=== PATIENT | male | born 1990 | race Two or more races ===

== ENCOUNTER 2017-04-20 00:33 | Emergency (ER) | payer SELFPAY ==
[~2017-04-20] VITALS: Ht 162.6 cm; Wt 72.6 kg
[2017-04-20 00:42] VITALS: BP 121/63
[2017-04-20] MEDS ORDERED: CEPH-264 PO (02:00)
--- NOTE | 2017-04-20 02:00 | PHYS DOC ---
Adult General Chief Complaint Chief Complaint: LACERATION/AVULSION HPI HPI 26-year-old male status post lack dorsum right thumb approximately 9-10 hours ago. Patient was at work when a sharp piece of metal twisted around and cut the back of his thumb. He has normal use and range of motion of the thumb. Normal distal sensation. He reports a small amount of bleeding. His tetanus is not up- to-date. He is right-handed. No blood or bleeding problems and no anticoagulants . Patient denies the possibility of a foreign body in the wound. Review of Systems Review of Systems Constitutional: Denies fever or chills [] Eyes: Denies change in visual acuity, redness, or eye pain [] HENT: Denies nasal congestion or sore throat [] Respiratory: Denies cough or shortness of breath [] Cardiovascular: No additional information not addressed in HPI [] GI: Denies abdominal pain, nausea, vomiting, bloody stools or diarrhea [] : Denies dysuria or hematuria [] Musculoskeletal: Denies back pain or joint pain [] Integument: Denies rash or skin lesions [] Neurologic: Denies headache, focal weakness or sensory changes [] Endocrine: Denies polyuria or polydipsia [] All other systems were reviewed and found to be within normal limits, except as documented in this note. Current Medications Current Medications Current Medications Medications (Trade) Dose Ordered Sig/Zan Start Time Stop Time Status Last Admin Dose Admin Cephalexin HCl (Keflex) 500 mg 1X ONCE 04/20/17 02:30 04/20/17 02:40 DC 04/20/17 02:59 500 MG Diphtheria/ Tetanus/Acell Pertussis (Boostrix) 0.5 ml ONCE ONCE 04/20/17 02:45 04/20/17 02:46 DC 04/20/17 03:00 0.5 ML Allergies Allergies Allergies Coded Allergies Type Severity Reaction Last Updated Verified No Known Drug Allergies 04/20/17 No Physical Exam Physical Exam Well-appearing 26-year-old male no acute distress 1.5 cm laceration dorsum right thumb over the MCP without joint or extensor tendon involvement. No gross contamination. No erythema warmth fluctuance or crepitus. No hematoma. Patient has normal full range of motion and use of the thumb and hand. Constitutional: Well developed, well nourished, no acute distress, non-toxic appearance. [] HENT: Normocephalic, atraumatic, bilateral external ears normal, oropharynx moist, no oral exudates, nose normal. [] Eyes: PERRLA, EOMI, conjunctiva normal, no discharge. [] Neck: Normal range of motion, no tenderness, supple, no stridor. [] Cardiovascular:Heart rate regular rhythm, no murmur [] Lungs & Thorax: Bilateral breath sounds clear to auscultation [] Abdomen: Bowel sounds normal, soft, no tenderness, no masses, no pulsatile masses. [] Skin: Warm, dry, no erythema, no rash. [] Back: No tenderness, no CVA tenderness. [] Extremities: No tenderness, no cyanosis, no clubbing, ROM intact, no edema. [] Neurologic: Alert and oriented X 3, normal motor function, normal sensory function, no focal deficits noted. [] Psychologic: Affect normal, judgement normal, mood normal. [] Current Patient Data Vital Signs Vital Signs Date Time Temp Pulse Resp B/P (MAP) Pulse Ox O2 Delivery O2 Flow Rate FiO2 04/20/17 00:42 97.0 62 18 99 Room Air 97.0 EKG EKG [] Radiology/Procedures Radiology/Procedures [] Course & Med Decision Making Course & Med Decision Making Pertinent Labs and Imaging studies reviewed. (See chart for details) Patient with simple laceration dorsum left thumb. Normal function. No evidence of wound complicated by tendon or nerve involvement. Normal use and range of motion. Wound has been open for 9-10 hours so primary suture closure not clinically indicated. Wound irrigated extensively in ED with iodine tap water irrigation and Steri-Strip closure performed by nurse and ER M.D. No anesthesia was used and patient tolerated the process well. Hemostatic prior to discharge. Dressing in place. Tetanus updated. No further workup or treatment indicated. Patient agrees with outpatient follow-up and strict return precautions given [] Dragon Disclaimer Dragon Disclaimer This electronic medical record was generated, in whole or in part, using a voice recognition dictation system. Departure Departure Impression: Primary Impression: Laceration Disposition: HOME, SELF-CARE Condition: GOOD Referrals: NO PCP (PCP) Patient Instructions: Laceration Care, Adult Additional Instructions: Suffered a laceration of your right hand. You have no evidence of tendon injury. Be aware that there is always a possibility of some small foreign body in a wound however you've felt that the metal was clean and that foreign body is less likely in your case. Your tetanus has been updated. A Steri-Strip has been applied to your wound. Finish Keflex as prescribed to prevent infection. Follow-up with your doctor in 2 days for a wound check and return for signs of infection. If it's sore take ibuprofen every 6 hours and Tylenol every 4 hours as needed Scripts Cephalexin (KEFLEX) 500 Mg Capsule 1 CAP PO QID, #20 CAP Prov: RAPHAEL MUÑOZ MD 04/20/17 RAPHAEL MUÑOZ MD Apr 20, 2017 02:00
[2017-04-20] MEDS ORDERED: CEPHALEXIN 250 MG CAPSULE. PO ONE (02:30)
[2017-04-20] MEDS ORDERED: DIPHTH,PERTUSS(ACELL),TET TOX 0.5 ML DISP.SYRIN. VAX IM ONE (02:45)
== END 2017-04-20 03:15 | disposition home or self-care (01) ==
LOC: ER 00:33
DX: S61.011A Laceration without foreign body of right thumb without damage to nail, initial encounter (principal); Y28.8XXA Contact with other sharp object, undetermined intent, initial encounter; Y93.89 Activity, other specified; Y99.8 Other external cause status; Y92.89 Other specified places as the place of occurrence of the external cause
CPT/HCPCS: 90471; 90715; 99283-25

== ENCOUNTER 2017-07-19 12:40 | Emergency (ER) | payer SELFPAY ==
[2017-07-19 14:23] LABS: AGAP ISTAT 17 mmol/L (6-14); BUN ISTAT 19 mg/dL (8-26); CHLORIDE ISTAT 105 mmol/L (98-110); GLUCOSE ISTAT 95 mg/dL (70-99); HEMATOCRIT ISTAT 39 % (37-52); HEMOGLOBIN ISTAT 13.3 g/dL (14-18); POTASSIUM ISTAT 4.4 mmol/L (3.5-5.0); SODIUM ISTAT 142 mmol/L (135-145); TOT CO2 ISTAT 25 mmol/L (23-32)
[2017-07-19 14:51] LABS: INFLUENZA A PATIENT NEGATIVE (NEGATIVE); INFLUENZA B PATIENT NEGATIVE (NEGATIVE); OBC FLU VALID
== END 2017-07-19 15:44 | disposition home or self-care (01) ==
LOC: ER 12:40
DX: F41.9 Anxiety disorder, unspecified (principal); R20.2 Paresthesia of skin; R06.02 Shortness of breath
CPT/HCPCS: 36415; 71046; 80047; 85014; 85018; 87804; 87804-59; 93005; 99285-25